=== PATIENT | female | born 1955 | race African-American/Black ===

== ENCOUNTER 2016-07-03 08:39 | Emergency (ER) | payer MEDICAID ==
[~2016-07-03] VITALS: Ht 160 cm; Wt 77.0 kg
[2016-07-03] MEDS ORDERED: ENAL20TA PO (08:44)
[2016-07-03] MEDS ORDERED: ATEN50TA PO (08:44)
[2016-07-03] MEDS ORDERED: CLON0.1T PO (08:45)
[2016-07-03] MEDS ORDERED: CLONIDINE 0.2MG TABLET PO ONE (10:00)
[2016-07-03] MEDS ORDERED: CLONIDINE 0.1MG TABLET PO ONE (11:00)
[2016-07-03] MEDS ORDERED: HYDRALAZINE HCL 25MG TABLET PO ONE (11:00)
[2016-07-03 11:30] VITALS: BP 158/76
== END 2016-07-03 11:42 | disposition home or self-care (01) ==
LOC: ER 08:40
DX: I10 Essential (primary) hypertension (principal); Z79.899 Other long term (current) drug therapy
CPT/HCPCS: 99284